=== PATIENT | male | born 1985 | race Hispanic/Latino ===

== ENCOUNTER 2019-03-27 22:59 | Emergency (ER) | payer OTHER ==
[2019-03-28] MEDS ORDERED: ERYTHROMYCIN BASE 0.5% OPHTH OINT 1 GM TUBE ONE (00:08)
== END 2019-03-28 00:24 | disposition home or self-care (01) ==
LOC: EDH 22:59
DX: H00.015 Hordeolum externum left lower eyelid (principal); Z72.0 Tobacco use

== ENCOUNTER 2025-04-03 15:28 | Emergency (ER) | payer BC ==
[~2025-04-03] VITALS: Ht 167.6 cm; Wt 99.8 kg
--- NOTE | 2025-04-03 15:55 | ERN ---
General Chief Complaint: Back Pain or Injury Stated Complaint: BACK AND LEFT LEG PAIN Time Seen by MD: 15:31 Source: patient History of Present Illness Initial Comments Patient is a 39-year-old male coming in complaining of lower left extremity pain. Per patient he was told that he had a abnormal x-ray. Patient was referred to an search specialist but states he has not been able to go. Patient states that the pain began a month ago. Patient is able to ambulate but with some discomfort. Allergies: Coded Allergies: No Known Drug Allergies (Unverified Allergy, Unknown, 04/03/25) Past Medical History Past Medical History: No Pertinent History Past Surgical History: None ROS Dictation CONSTITUTIONAL: No chills, no fever, no weakness, no diaphoresis, no malaise. HEAD/FACE: No signs of trauma. EENT: No eye pain, no blurred vision, no tearing, no double vision, no ear pain, no ear discharge, no nose pain, no nasal congestion, no throat pain, no throat swelling, no mouth pain. RESPIRATORY: No cough, no orthopnea, no SOB, no stridor, no wheezing. CARDIOVASCULAR: No chest pain, no edema, no palpitations, no syncope. GASTROINTESTINAL/ABDOMINAL: No abdominal pain, no constipation, no diarrhea, no nausea, no vomiting. GENITOURINARY: No abnormal discharge, no dysuria, no frequent urination, no hematuria. No complaints of pain in the genitals. MUSCULOSKELETAL: back pain, no gout, no joint pain, no joint swelling, muscle pain, no muscle stiffness, no neck pain. INTEGUMENTARY: No change in color, no change in hair/nails, no dryness, no lesion, no lumps, no rash. NEUROLOGICAL/PSYCH: No anxiety, not depressed, no emotional problem, no headache, no numbness, no pre-existing deficit, no history of seizures, no tremors, no weakness. HEMATOLOGIC/LYMPHATIC: Not anemic, no history of blood clots, no apparent bleeding, no bruising, glands not swollen. All Systems Negative, Except as Noted. Physical Exam Physical Exam Dictation VITAL SIGNS: Reviewed. GENERAL APPEARANCE: Alert, oriented x3, no acute distress, obese. HEAD AND FACE: Non-traumatic. EYES: PERRL, pink conjunctivas, eyelid no trauma, anterior chamber clear. EARS: Pinnas intact and no signs of trauma or erythema. Ear canals clear and no discharge. TMs no erythema. NOSE: No discharge, no bleeding. OROPHARYNX: Mouth normal, teeth no caries, tongue pink. Pharynx clear, no erythema. Tonsils no exudates, no abscesses noted. Mucous membrane moist. NECK: Supple, non-tender, no thyromegaly, no masses, no JVD, no bruits. BREAST: Deferred. CHEST: No tenderness, no crepitus, no paradoxical movement, no retractions. LUNGS: Clear, well-ventilated, symmetric, no rales, no wheezing, no rhonchi, no stridor, good breath sounds bilaterally. HEART: Regular rate, regular rhythm, no murmur, no gallops. VASCULAR: No peripheral edema. ABDOMEN: Soft, positive bowel sounds, nondistended, no guarding, nontender, no rebound, no masses no hepatomegaly, no splenomegaly, no Ray's sign, no hernias. RECTAL: Deferred. GENITAL: Deferred. NEUROLOGICAL: Normal speech, gross motor function intact, gross sensory function intact. MUSCULOSKELETAL: Neck nontender, full range of motion, back nontender, full range of motion. EXTREMITIES: Nontender, full range of motion. Left piriformis muscle tenderness on palpation SKIN: Color pink, dry, no turgor, no rash, no lacerations, no abrasions, no contusions. LYMPHATICS: Deferred. Results Laboratory and Microbiology Labs Reviewed?: Yes MDM MDM: Differential diagnosis: Left-sided sciatica, left muscle strain, chronic back pain, Rationale: Tests considered and ordered secondary to shared decision making include: Previous outside records reviewed: Old ER visits. Risk of complication and/or morbidity or mortality of patient management: None Medications-Per medication reconciliation Need for hospitalization: Patient does not meet criteria for hospitalization. In his is a 39-year-old male coming in complaining of lower left back and leg pain. On physical exam left-sided piriformis muscle tenderness. Patient received antispasmodics anti-inflammatories states that his pain has improved. Patient will be discharged in stable condition with a diagnosis of left-sided sciatica. Patient was told a month ago about diagnosis but states he has not been able to follow up with ortho. ED Course Orders Procedure Category Date Status Time Orphenadrine Citrate PHA 04/03/25 Complete (Norflex) 16:00 Triamcinolone Acet PHA 04/03/25 Complete 40mg/Ml 1ml (Kenalog 16:30 Current Medications Medications (Trade) Dose Ordered Sig/Igor Route PRN Reason Start Time Stop Time Status Last Admin Dose Admin Orphenadrine Citrate (Norflex) 60 mg ONCE ONCE IM 04/03/25 16:00 04/03/25 16:02 DC 04/03/25 16:42 Triamcinolone Acetonide (Kenalog 40) 40 mg ONCE ONCE IM 04/03/25 16:30 04/03/25 16:31 DC 04/03/25 16:42 Vital Signs Date Time Temp Pulse Resp B/P (MAP) Pulse Ox O2 Delivery O2 Flow Rate FiO2 04/03/25 16:42 97.9 85 18 137/79 97 Room Air* 0 21 04/03/25 15:30 97.9 91 18 146/78 97 Room Air DX & DISP Disposition: Discharge Departure Impression: Primary Impression: Left sided sciatica Condition: Stable Scripts Naproxen (Naproxen) 500 Mg Tablet 1 TAB PO BID for pain for 7 Days, #14 TAB 0 Refills Prov: BERNARDO MYLES MD 04/03/25 Methocarbamol (Robaxin) 750 Mg Tab 1 TAB PO BID for 7 Days, #14 TAB 0 Refills Prov: BERNARDO MYLES MD 04/03/25 Additional Instructions: Discharge instruction FOLLOW-UP WITH PRIMARY CARE PROVIDER IN 1 TO 2 DAYS. TAKE MEDICATIONS DIRECTED HERE IN THE EMERGENCY ROOM. OKAY TO CONTINUE HOME MEDICATIONS UNLESS OTHERWISE DISCUSSED DURING YOUR VISIT IN THE EMERGENCY ROOM TODAY. RETURN TO YOUR NEAREST EMERGENCY ROOM IF SYMPTOMS WORSEN OR IF THERE IS NO IMPROVEMENT. CALL 911 IF YOU NEED IMMEDIATE ASSISTANCE. TAKE TYLENOL [id number] NEEDED AND IF NO CONTRAINDICATIONS ARE PRESENT. INCREASE ORAL HYDRATION. A WOUND CULTURE OR URINE CULTURE WAS ORDERED HERE IN THE EMERGENCY ROOM DEPARTMENT PLEASE FOLLOW-UP WITH PRIMARY CARE PROVIDER AND ADVISE THEM TO GET REPORTS FROM OUR FACILITY. IF YOU HAD ANY [place] WRAP/SPLINTS THAT WERE APPLIED HERE, PLEASE DO NOT REMOVE THEM UNTIL YOU SEE YOUR PRIMARY CARE OR SPECIALTY. Referrals: Referrals: SELF,REFERRAL (PCP) HARRY EMMANUEL MD Time of Disposition: 17:04 BERNARDO MYLES MD Apr 03, 2025 15:55
[2025-04-03 16:42] VITALS: BP 137/79; PULSE 85; RESP 18; TEMP 97.9; O2SAT 97
[2025-04-03] MEDS: TRIAMCINOLONE ACETONIDE 40 MG/ML 1ML VIAL IM ONE (16:42)
[2025-04-03] MEDS: ORPHENADRINE 60MG/2ML IM ONE (16:42)
[2025-04-03] MEDS ORDERED: NAPR-1194 PO (17:07)
[2025-04-03] MEDS ORDERED: METH-662 PO (17:07)
== END 2025-04-03 17:23 | disposition home or self-care (01) ==
LOC: EDH 15:28
DX: M54.32 Sciatica, left side (principal); Z79.899 Other long term (current) drug therapy
CPT/HCPCS: 99284; 96372 ×2; J3301; J2360